=== PATIENT | female | born 2005 | race African-American/Black ===

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

== ENCOUNTER 2025-02-08 13:13 | Emergency (ER) | payer OTHER, SELFPAY ==
[2025-02-08 13:48] VITALS: BP 123/63; PULSE 73; RESP 18; TEMP 37.1; O2SAT 100; BMI 27.2
--- NOTE | 2025-02-08 13:49 | ED.GENADULT ---
HPI - General Adult General Chief complaint: Dizziness Stated complaint: Fever Body Aches Time Seen by Provider: 02/08/25 20:13 Source: patient Mode of arrival: ambulatory Limitations: no limitations History of Present Illness ED Provider: Mamadou MCKENNA HPI narrative: The patient is a 19-year-old female who presents to the Emergency Department with approximately two weeks of ?viral-like? symptoms. She reports profound weakness and fatigue not relieved by sleep, as well as subjective fever without objective fever, diffuse body aches that worsen with activity, and dizziness?particularly noted when descending stairs. Patient also reports loss of appetite over the past week, intermittent mild chest discomfort, and lower abdominal pain that she attributes in part to her recent menstrual period. The patient reports she was experiencing diarrhea last week but denies vomiting, denies associated hematochezia or melena. Patient denies cough or sick contacts, denies any recent travel or vaccinations. She was evaluated by her primary care provider last week week, laboratory evaluation at that time, which was reviewed by this provider via the patient's health portal, included CBC, CMP, TSH, hepatitis panel, iron panel, and HIV testing, all of which were negative. Of note the patient reports she is currently working 2 jobs and also attending school, and questions if she is experiencing fatigue from over exertion. Related Data Previous Rx's ?Medication ?Instructions ?Recorded diphenhydramine HCl 25 mg capsule 25 mg PO Q8H 5 days #15 caps 12/15/24 (Benadryl) epinephrine 0.3 mg/0.3 mL 0.3 mg (0.3 mL) IM ONCE PRN 12/15/24 injection, auto-injector (EpiPen) extreme reaction #2 ea famotidine 20 mg tablet (Pepcid) 20 mg PO BID 5 days #10 tabs 12/15/24 prednisone 20 mg tablet 40 mg (2 x 20 mg) PO DAILY #10 tabs 12/15/24 Allergies Allergy/AdvReac Type Severity Reaction Status Date / Time walnut Allergy Intermediate Shortness Verified 02/08/25 13:51 of Breath Review of Systems Review of Systems: Yes all other systems are reviewed and are negative PMFSH Past Medical History Medical History Elevated cholesterol Social History Social History Alcohol intake: never Patient Tobacco Use Status: Never used Tobacco Physical Exam ED Vital Signs: Vital Signs - 24 hr 02/08/25 13:48 02/08/25 19:39 02/08/25 19:39 Temperature 98.7 F Pulse Rate 73 70 65 Respiratory Rate 18 Blood Pressure 123/63 129/67 131/76 Pulse Oximetry 100 Oxygen Delivery Method Room Air 02/08/25 19:40 02/08/25 19:40 Temperature 98.2 F Pulse Rate 75 Respiratory Rate Blood Pressure 144/87 H Pulse Oximetry Oxygen Delivery Method BMI result Body Mass Index 27.2 CONSTITUTIONAL: The patient appears non-toxic, well nourished and in no acute distress. Vital signs as documented. HEAD: Atraumatic, normocephalic. EYES: EOMs grossly intact, pupils equal, conjunctiva clear, no exudate. ENT: Nares patent, no discharge. Airway patent, no audible stridor, visible mucosa is pink and moist without noted lesions. NECK: Trachea is midline, no obvious masses or gross abnormalities. CHEST: Symmetric movement, normal appearance. LUNGS: LS present and CTAB, no w/r/r. Non-labored work of breathing. CARDIAC: Regular Rhythm, S1/S2 appreciated, no murmurs, rubs or gallops. ABDOMEN: Abdomen soft and non-tender x4 quadrants, no palpable masses or organomegaly. Negative CVAT bilaterally. : Deferred. EXTREMITIES: Normal tone, moves all extremities spontaneously without reported pain. No obvious acute injury or deformity noted. NEURO: Alert and oriented x3, CN II-XII appear grossly intact. Cerebellar Functioning grossly intact. No obvious sensory or motor deficits. Speech clear and appropriate. PSYCH: normal affect, appropriate eye contact, fluid speech, with appropriate response to questioning. No reported suicidality or homicidality. SKIN: Warm, dry, color appropriate, normal turgor. No rashes noted. Course Course Course Narrative: This is a Rapid Medical Exam performed in triage by Jennifer Chao PA-C. Full HPI, ROS and PE to be performed by primary ED provider. 19 yo F presenting to the ED c/o subjective fever, myalgias, lethargy, & lightheadedness x 2 weeks. denies travel, known tick/insect bites PE: NAD, nontoxic appearing, ambulating with steady gait, talking in complete sentences Plan: EKG, labs, orthostatics, UA Medical Decision Making Medical Decision Making [facility] Narrative: 8:32 PM 02/08/2025 (Meng MCKENNA): The patient is a 19-year-old female who presents to the Emergency Department with approximately two weeks of ?viral-like? symptoms. She reports profound weakness and fatigue not relieved by sleep, as well as subjective fever without objective fever, diffuse body aches that worsen with activity, and dizziness?particularly noted when descending stairs. Patient also reports loss of appetite over the past week, intermittent mild chest discomfort, and lower abdominal pain that she attributes in part to her recent menstrual period. The patient reports she was experiencing diarrhea last week but denies vomiting, denies associated hematochezia or melena. Patient denies cough or sick contacts, denies any recent travel or vaccinations. She was evaluated by her primary care provider last week week, laboratory evaluation at that time, which was reviewed by this provider via the patient's health portal, included CBC, CMP, TSH, hepatitis panel, iron panel, and HIV testing, all of which were negative. Of note the patient reports she is currently working 2 jobs and also attending school, and questions if she is experiencing fatigue from over exertion. In the ED today patient is well-appearing, exam is benign, no adventitious lung sounds, abdominal tenderness, or CVAT. The patient's vital signs are stable, patient is normotensive without tachycardia, hypoxia, fever, or tachypnea. The patient's laboratory evaluation today demonstrates mild leukopenia of 3.8, no anemia, electrolyte abnormality, or ZANDRA. The patient's LFTs are unremarkable, CK normal. The patient's urinalysis negative for infection, , or hematuria. The patient's viral swabs are negative for influenza, COVID, and RSV. The patient had a tick-borne panel sent which is pending and will not result today. At this time patient appears in no acute distress, no indication for additional observation, patient will be discharged with supportive care, PCP follow up, and instructions to follow up regarding tick-borne illness testing. Admission/Observation Consideration of admission/observation: Escalation of care including admission/observation considered Lab Data [facility] Lab Attestation statement: I reviewed the patient's lab results. 02/08/25 14:20 11/19/25 14:20 Labs: Lab Results 02/08/25 02/08/25 Range/Units 14:06 14:20 WBC 3.8 L (4.8-10.8) X10*3/uL RBC 4.52 (4.20-5.50) X10*6/uL Hgb 12.0 (12.0-16.0) g/dl Hct 37.2 (37.0-47.0) % MCV 82.3 (80.0-98.0) fL MCH 26.5 L (27.0-33.0) pg MCHC 32.3 (31.0-35.0) g/dl RDW 13.1 (11.0-16.0) % Plt Count 263 (160-400) X10*3/uL MPV 9.9 (9.4-12.3) fL Immature Gran % (Auto) 0.0 (0.0-0.4) % Neut % (Auto) 33.2 L (45-73) % Lymph % (Auto) 54.3 H (20-40) % Mesa % (Auto) 5.6 (2-11) % Eos % (Auto) 6.1 H (0-4) % Baso % (Auto) 0.8 (0-2) % Lymph # (Auto) 2.0 (1.2-4.9) X10*3/uL Mesa # (Auto) 0.2 (0.1-1.2) X10*3/uL Eos # (Auto) 0.2 (0.0-0.4) X10*3/uL Baso # (Auto) 0.0 (0.0-0.2) X10*3/uL Abs Immat Gran (auto) 0.00 (0.00-0.03) X10*3/uL Absolute Neuts (auto) 1.3 L (2.0-8.3) x10*3/uL Absolute Nucleated RBC 0.000 (0.0-0.012) X10*3/uL Nucleated RBC % (auto) 0.0 (0.0-0.2) /100WBC Sodium 140 (135-145) mmol/L Potassium 3.7 D (3.3-5.1) mmol/L Chloride 108 (96-108) mmol/L Carbon Dioxide 25 (22-29) mmol/L Anion Gap 11 L (12-20) BUN 19 H (9-16) mg/dL Creatinine 0.91 (0.5-1.4) mg/dL Estim Creat Clear Calc 111.1 Estimated GFR > 60 Random Glucose 90 (60-115) mg/dL Calcium 9.2 (8.4-10.2) mg/dL Magnesium 1.9 (1.6-2.6) mg/dL Total Bilirubin 0.2 (0.0-1.0) mg/dL Direct Bilirubin < 0.2 (0.0-0.5) mg/dL AST 18 (5-31) U/L ALT 11 (0-31) U/L Alkaline Phosphatase 58 (39-117) U/L Total Creatine Kinase 55 (26-140) U/L Total Protein 7.7 (6.5-8.0) g/dL Albumin 4.5 (3.5-5.0) g/dL Urine Color Yellow Urine Appearance Clear Urine pH 7.0 (5.0-9.0) Ur Specific Stem 1.020 (1.005-1.025) Urine Protein Negative (Neg-Trace) mg/dL Urine Glucose (UA) Negative (Negative) mg/dL Urine Ketones Negative (Negative) mg/dL Urine Blood Negative (Negative) Urine Nitrite Negative (Negative) Ur Leukocyte Esterase Negative (Negative) Urine Test NEGATIVE (NEGATIVE) Influenza Type A (PCR) NEGATIVE (Negative) Influenza Type B (PCR) NEGATIVE (Negative) RSV RNA Qual (PCR) NEGATIVE (Negative) SARS-CoV-2 RNA (RT-PCR) NEGATIVE (Negative) Independent Interpretation I performed an independent interpretation of an: EKG (EKG shows sinus rhythm with a rate of 77, no evidence of acute ischemia, no ST elevation, no ectopy. QTC 400, compared to previous on 12/15/2024 there are no significant morphology changes.) External Record Review External record reviewed: Outpatient record and Prior outpatient labs Prescription Management I considered prescription management with: Antibiotic Discharge Plan Discharge Clinical Impression: Fatigue Qualifiers: Fatigue type: unspecified Qualified Code(s): R53.83 - Other fatigue Patient Disposition: Home, Self-Care Instructions: Fatigue (ED) Additional Instructions: Thank you for choosing [facility]'s Emergency Department for your care today. Thankfully your laboratory evaluation, EKG, urinalysis, viral swabs, and exam today are all reassuring. There is no evidence of any emergent process requiring immediate intervention, admission to the hospital or continued ED observation, and it is safe to discharge you home to continue investigating the source of your symptoms with the your primary care provider. Your tick-borne illness testing is still pending results, however the results will not come in tonight. Please contact our laboratory and/or medical records department in 2-3 days for the results of your Lyme and other tick-borne illness testing. You should take alternating (staggered) doses of ibuprofen 600mg and Tylenol 1000mg every 4 hours as needed for any additional fever or pain. Please stay well hydrated and get plenty of rest. Please follow up with your primary care physician for re-evaluation, additional investigation into the source of your symptoms, and continued preventative care. If you do not have a primary care physician, please call the [facility] at [phone] to establish a new primary care physician. While waiting to establish your new primary care physician, you can call our Walk[facility]in [facility] at [phone] for non-emergency needs. Please return to the emergency department if you develop a severe or sudden change in your symptoms, a fever over 100.4 that does not improve with Tylenol or Ibuprofen, recurrent vomiting, or any other new or worsening symptoms or concerns. Prescriptions: No Action diphenhydramine HCl [Benadryl] 25 mg capsule 25 mg PO Q8H 5 Days Qty: 15 0RF prednisone 20 mg tablet 40 mg PO DAILY Qty: 10 0RF famotidine [Pepcid] 20 mg tablet 20 mg PO BID 5 Days Qty: 10 0RF epinephrine [EpiPen] 0.3 mg/0.3 mL auto-injector 0.3 mg IM ONCE PRN (Reason: extreme reaction) Qty: 2 0RF Rx Instructions: for 2 doses Referrals: Silvio Katz MD [Primary Care Provider, Internal Medicine] Clinical Impression: Fatigue Print Language: Guinean
--- NOTE | 2025-02-08 13:50 | ECG_ITS ---
Test Reason : LIGHTHEADED Blood Pressure : */* mmHG Vent. Rate : 77 BPM Atrial Rate : 77 BPM P-R Int : 150 ms QRS Dur : 88 ms QT Int : 354 ms P-R-T Axes : 74 85 47 degrees QTcB Int : 400 ms Normal sinus rhythm Normal ECG When compared with ECG of 15-Dec-2024 19:03, No significant change was found Referred By: Jennifer Chao Electronically Signed By: VIJAYA BRUMFIELD
[2025-02-08 14:13] LABS: Appearance Urine Clear; Glucose Urine UA Negative (Negative); PH 7.0 (5.0-9.0); Specific Gravity - Urine 1.020 (1.005-1.025)
[2025-02-08 14:25] LABS: MANUAL DIFF FLAG NO
[2025-02-08 14:26] LABS: Hematocrit 37.2 % (37.0-47.0); Hemoglobin 12.0 g/dl (12.0-16.0); Imm Gran Abs Auto 0.00 X10*3/uL (0.00-0.03); Imm Gran Pct Auto 0.0 % (0.0-0.4); Lymphocytes Absolute Auto 2.0 X10*3/uL (1.2-4.9); Mean Corpuscular HGB Conc 32.3 g/dl (31.0-35.0); Mean Corpuscular Hemoglobin 26.5 pg (27.0-33.0); Mean Corpuscular Volume 82.3 fL (80.0-98.0); NRBC Abs Auto 0.000 X10*3/uL (0.0-0.012); NRBC Pct Auto 0.0 /100WBC (0.0-0.2); Platelet Count 263 X10*3/uL (160-400); Red Blood Count 4.52 X10*6/uL (4.20-5.50); White Blood Count 3.8 X10*3/uL (4.8-10.8)
[2025-02-08 14:52] LABS: Alanine Aminotransferase 11 U/L (0-31); Albumin Level 4.5 g/dL (3.5-5.0); Alkaline Phosphatase 58 U/L (39-117); Anion Gap 11 (12-20); Aspartate Amino Transferase 18 U/L (5-31); Blood Urea Nitrogen 19 mg/dL (9-16); Calcium 9.2 mg/dL (8.4-10.2); Carbon Dioxide 25 mmol/L (22-29); Chloride 108 mmol/L (96-108); Creatinine Clr Calc Pharmacy 111.1; Estimated Glomerular Filt Rate > 60; Magnesium 1.9 mg/dL (1.6-2.6); Potassium 3.7 mmol/L (3.3-5.1); Sodium 140 mmol/L (135-145); Total Protein 7.7 g/dL (6.5-8.0)
[2025-02-08 15:04] LABS: Resp Syncy Virus RNA Qual PCR NEGATIVE (Negative); SARS COV2 PCR INHOUSE NEGATIVE (Negative)
[2025-02-08 15:35] LABS: UPreg QC Valid YES
[2025-02-08 19:39] VITALS: BP 129/67; BP 131/76; PULSE 65; PULSE 70
[2025-02-08 19:40] VITALS: BP 144/87; PULSE 75; TEMP 36.8
[2025-02-08 21:07] VITALS: BP 135/87; PULSE 60; RESP 16; TEMP 36.6; O2SAT 100
[2025-02-09 07:03] LABS: Lyme Abs Screen <0.90 index
[2025-02-10 04:03] LABS: A. Phagocytphilium DNA,RT-PCR NOT DETECTED (NOT DETECTED); Babesia Microti DNA, RT-PCR NOT DETECTED (NOT DETECTED); Borrelia Miyamotoi,DNA RT-PCR NOT DETECTED (NOT DETECTED); E.Chaffeensis DNA RT-PCR NOT DETECTED (NOT DETECTED); Lyme(Borrelia ssp)DNA RT-PCR NOT DETECTED (NOT DETECTED)
== END 2025-02-08 21:08 | disposition home or self-care (01) ==
PROVIDERS: Physician Assistant; Emergency Provider Student in an Organized Health Care Education/Training Program; PCP Internal Medicine
DX: R53.83 Other fatigue (principal); R42 Dizziness and giddiness; Z03.818 Encounter for observation for suspected exposure to other biological agents ruled out; R53.1 Weakness; R50.9 Fever, unspecified; M79.10 Myalgia, unspecified site
CPT/HCPCS: 36415; 80048; 80076; 81003; 81025; 82550; 83735; 85025; 86617; 86618; 87468; 87469; 87478; 87484; 87637; 87798; 93005; 99283; 99285

== ENCOUNTER → 2025-02-08 13:50 | Outpatient (BNV) | payer OTHER, SELFPAY | PROVIDERS: PCP Internal Medicine; Visit Provider Internal Medicine | DX: R42 Dizziness and giddiness (principal) | CPT/HCPCS: 93010 ==